=== PATIENT | female | born 1990 | race Caucasian/White ===

== ENCOUNTER 2018-11-30 18:09 | Inpatient (IN) | payer OTHER ==
[~2018-11-30 18:09] MED LIST: Bupivacaine HCl 0.25%/Epi 0.0005/PF 10 ML VIAL FS ONE
[2018-11-30 18:33] VITALS: BMI 23.8
[2018-11-30] MEDS ORDERED: Ondansetron PF 4 MG/2 ML Vial IVP PRN ×2 (18:53→22:57)
[2018-11-30] MEDS ORDERED: Promethazine HCl 25 MG/ML VIAL IM PRN ×2 (18:53→22:57)
[2018-11-30] MEDS ORDERED: Lidocaine 1% (PF) 30 ML VIAL SC PRN (18:55)
[2018-11-30] MEDS ORDERED: Ibuprofen 800 MG TAB PO PRN (18:55)
[2018-11-30] MEDS ORDERED: NS / Oxytocin 40 units/1000ml 1,000 ML IV PRN (18:55)
--- NOTE | 2018-11-30 18:57 | PDOC.FPROB ---
FMR OB H&P: HPI - History of Present Illness Chief Complaint: contractions Indentification: 28 y/o @ 40w1d History of Present Illness: Patient presents with contractions. She reports that this morning she was seen in clinic and was found to be a [address] Araya stripped her membranes. She endorses a h/o of being 5-6 cm the whole last month of her last . She states though that she started lila right after her office visit and had some pink tinged discharge. The contractions got progressively closer together and around 1730 she reports that she had to sit down during them and they were about every 5-6 minutes apart. She denies any LOF, vaginal bleeding. She endorses movement. Primary Care Physician: Dr. Araya FMR OB H&P: Current - Care : 3 Para: 2 Gestational age: 40w1d Due date: 11/29/18 Course/Complications: She reports a h/o anemia of and has been taking ferrous sulfate - OB Labs HIV: negative 1 hour gtt: 127 GBS: negative H&H: 9.5/28.8 FMR OB H&P: History - Past Medical History PMH: None - OB History OB History: 2 prior at 41 weeks - [employer] History [employer] History: Denies h/o STI's - Surgical History Sx History: None - Social History Social History: , denies tobacco, EtOH, or drug use - Family History Family History: h/o breast cancer in maternal grandmother and paternal aunt FMR OB H&P: ROS - Review of Systems General: denies: fever/chills, recent trauma Eyes: denies: vision changes, scotomas ENT: denies: nasal congestion, rhinorrhea Cardiovascular: denies: chest pain, edema Respiratory: denies: cough, shortness of breath Gastrointestinal: reports: abdominal pain, cramping Genitourinary (Female): denies: dysuria, hematuria Musculoskeletal: denies: pain, tenderness Neurologic: denies: numbness, weakness Integumentary: denies: rash, lesions Psychological: denies: depression, anxiety FMR OB H&P: Vital Signs - Maternal Vital signs: BP 122/78 HR 117 - Heart Tones Baseline: 130 Variability: moderate Acceleration: present Deceleration: absent Category: category 1 [place] contractions every: 4-5 minutes FMR OB H&P: Physical Exam - Physical Exam General: NAD, awake, alert and oriented HEENT: EOMI, MMM, conjunctiva clear, grossly normal vision, grossly normal hearing Neck: supple, FROM, no LAD Heart: normal S1/S2, no murmurs/rubs/gallops, pulses present, no edema, other ( tachycardic, regular rhythm) General: CTAB, no respiratory distress, good air movement, no rales/rhonchi, no wheezing Abdomen: gravid, non-tender, bowel sound present Musculoskeletal: normal gait and station, pulses present Neurological: cranial nerves II through XII intact, no focal deficit Skin: no rash, good tugor, capillary refill <2 seconds Lymphatic: no unusual bruising or bleeding, no purpura Psychiatric: intact recent and remote memory, good judgement and insight - Pelvic Exam SVE: Membranes: intact Presentation: vertex FMR OB H&P: A/P - Problem List (1) Active labor at term Current Visit: Yes Status: Acute Code(s): [id number] - Assessment and Plan: 28 y/o @ 40w1d. SVE , patient was 5cm in the office and had membranes stripped. Lila q4-5 minutes on toco -Admit to L&D, anticipate -LR @ 125 -Will continue to monitor for cervical change q2h -Continuous monitoring -Patient desires epidural once in more pain, will consult anesthesia for this Disposition: Admit to L&D Discussion: Date/Time: 11/30/181855 This H&P was discussed with Dr. Araya who agrees with the above documentation and plan. Signature: Mariam Luna MD, PGY-2
[2018-11-30] MEDS ORDERED: Lactated Ringer's 1,000 ML IV SCH (19:00)
[2018-11-30 21:09] LABS: Hemoglobin 12.6 g/dL (12.0-16.0); Mean Corpuscular HGB CONC 34.1 g/dL (32.0-36.0); Mean Corpuscular Hemoglobin 30.3 pg (27.0-31.0); Mean Corpuscular Volume 88.9 fL (78.0-98.0); Mean Platelet Volume 6.9 fL (7.4-10.4); Platelet Count 197 thou/uL (130-400); RBC Distribution Width 17.1 % (11.5-14.5); Red Blood Cell (RBC) Count 4.15 mill/uL (4.20-5.40); White Blood Cell (WBC) Count 10.7 thou/uL (4.8-10.8)
[2018-11-30 21:50] LABS: Syphilis Antibody Nonreactive (Nonreactive); Syphilis Antibody Index 0.03 S/CO (<1.00 Non-Reactive)
[2018-11-30] MEDS ORDERED: Fentanyl 4 mcg/Bup 0.1% Cadd 100 ML ONE (21:54)
[2018-11-30] MEDS ORDERED: Lidocaine 1.5%/Epinephrine 1:200,000 5 ML AMPUL IJ ONE (22:44)
[2018-11-30] MEDS ORDERED: Acetaminophen 325 MG TAB PO PRN (22:57)
[2018-11-30] MEDS ORDERED: Lactated Ringer's 500 ML IV PRN (22:57)
[2018-11-30] MEDS ORDERED: Eucerin (Mineral Oil/Petrolatum,White) 30 gm Jar TOP PRN (22:57)
[2018-11-30] MEDS ORDERED: ePHEDrine/0.9% NaCl/PF SYRINGE 50 mg/10 ml SLOW IVP PRN (22:57)
[2018-11-30] MEDS ORDERED: diphenhydrAMINE 50 MG/ML VIAL IVP PRN (22:57)
[2018-11-30] MEDS ORDERED: Naloxone HCl 0.4 mg/ml Vial IVP PRN ×2 (22:57)
[2018-11-30] MEDS ORDERED: Communication Order-Pharmacy FS SCH (23:00)
[2018-11-30] MEDS ORDERED: Fentanyl 4 mcg/Bupivacaine 0.1% Cassette 100 ML EPIDURAL SCH (23:00)
[2018-12-01 00:32] LABS: HBSAg Index 0.23 S/CO (0-0.99); Hep B Surf Ag Non-Reactive S/CO (NonReactive)
[2018-12-01] MEDS ORDERED: NS / Oxytocin 40 units/1000ml 1,000 ML IV SCH (05:44)
[2018-12-01] MEDS ORDERED: Ibuprofen 800 MG TAB PO SCH (05:44)
[2018-12-01] MEDS ORDERED: HYDROcodone/Acetaminophen 5/325 mg Tablet PO PRN (05:44)
[2018-12-01] MEDS ORDERED: Lanolin Ointment 7 GM TUBE TOP PRN (05:44)
[2018-12-01] MEDS ORDERED: Benzocaine/Menthol 20-0.5% 60 ML CAN TOP PRN (05:44)
[2018-12-01] MEDS ORDERED: Milk Of Magnesia 30 ML UDCUP PO PRN (05:44)
[2018-12-01] MEDS ORDERED: Bisacodyl 10 MG SUPP PR PRN (05:44)
[2018-12-01] MEDS: Ferrous Sulfate 325 MG TAB PO SCH ×2 (08:07→16:16)
[2018-12-01] MEDS: Docusate Calcium (SURFAK) 240 MG CAP PO SCH ×2 (08:16→21:30)
[2018-12-01] MEDS: Ibuprofen 800 MG TAB PO SCH ×3 (08:16→21:30)
--- NOTE | 2018-12-01 19:54 | DN ---
DATE OF PROCEDURE: 12/01/2018 DATE OF DELIVERY: 12/01/2018. PREOPERATIVE DIAGNOSIS: Term intrauterine in labor. POSTOPERATIVE DIAGNOSIS: Term intrauterine in labor. PROCEDURE PERFORMED: Normal spontaneous vaginal delivery. ANESTHESIA: Epidural. BRIEF DELIVERY SUMMARY: This is a 28-year-old G3, now P3, who presented in active labor. She progressed well to complete and pushing. She delivered a live male infant head away. Mouth and nares were bulb suctioned at the perineum. There was no nuchal cord. Shoulders and body easily followed, and the umbilical cord was doubly clamped and cut. Cord blood was collected and sent for analysis. Placenta delivered spontaneously and intact with a three-vessel umbilical cord. Uterine fundus was firm following evacuation of the placenta. There were no lacerations. Mom and baby were left with the nurse in excellent condition, . Job ID: [id number]
[2018-12-02] MEDS: Ibuprofen 800 MG TAB PO SCH (06:33)
[2018-12-02] MEDS: Ferrous Sulfate 325 MG TAB PO SCH (07:34)
[2018-12-02 08:35] VITALS: BP 113/64; TEMP 97.5
[2018-12-02] MEDS: Docusate Calcium (SURFAK) 240 MG CAP PO SCH (09:09)
--- NOTE | 2018-12-02 11:32 | PDOC.PP ---
Post Progress Note Post Day #: 1 Subjective: Doing well. Wants to go home today. without issues. Lochia normal. PO intake tolerated: yes Flatus: yes Ambulation: yes Vital Signs (12 hours) Temp Pulse Resp BP Pulse Ox 12/02/18 08:34 97.5 F L 69 16 113/64 97 12/02/18 00:00 97.7 F 79 18 111/68 Weight Weight 171 lb - Physical Examination General: NAD Cardiovascular: no m/r/g, RRR Respiratory: clear to auscultation bilaterally, non-labored breathing Abdominal: + bowel sounds, lochia, no distention, appropriately TTP Result Diagrams: 11/30/18 19:40 Additional Labs: Post Labs Blood Type O POSITIVE 11/30/18 19:40 Hep Bs Antigen Non-Reactive S/CO (NonReactive) 11/30/18 19:40 (1) Vaginal delivery Code(s): O80 - ENCOUNTER FOR FULL-TERM UNCOMPLICATED DELIVERY Status: Acute - Assessment/Plan Routine PP care D/C home F/U in 6 weeks
== END 2018-12-02 13:45 | disposition home or self-care (01) | DRG 807 ==
LOC: L&D/OP 18:09 → L&D 20:40 → 3SW 12-01 05:54
PROVIDERS: ADMIT Family Medicine; ATTEND Family Medicine
PROC: 10E0XZZ Delivery of Products of Conception, External Approach (ICD-10-PCS; principal; 2018-12-01)
PROC: 10907ZC Drainage of Amniotic Fluid, Therapeutic from Products of Conception, Via Natural or Artificial Opening (ICD-10-PCS; 2018-12-01)
DX: O48.0 Post-term pregnancy (principal); Z37.0 Single live birth; Z3A.40 40 weeks gestation of pregnancy
CPT/HCPCS: 36415; 51702; 85027; 86780; 86850; 86900; 86901; 87340; 87480; 87510; 87660; 99285; J2001; J3490